=== PATIENT | male | born 1950 | race African-American/Black ===

== ENCOUNTER 2017-04-17 07:14 | Outpatient (CLI) | payer OTHER ==
[~2017-04-17 07:14] MED LIST: ALLOPURINOL100 MG; INDOCIN25 MG PO; INDOMETHACIN50 MG PO; INDOMETHACIN75 MG
== END 2017-04-17 07:21 | disposition home or self-care (01) ==
LOC: LAB 07:14
DX: C61 Malignant neoplasm of prostate (principal); E03.8 Other specified hypothyroidism; E78.4 Other hyperlipidemia

== ENCOUNTER 2017-05-16 09:44 | Emergency (ER) | payer OTHER ==
[~2017-05-16] VITALS: Ht 172.7 cm; Wt 105.2 kg
== END 2017-05-16 13:18 | disposition home or self-care (01) ==
LOC: ER 09:44
DX: M25.571 Pain in right ankle and joints of right foot (principal)

== ENCOUNTER 2017-08-25 23:41 | Emergency (ER) | payer OTHER ==
[~2017-08-25] VITALS: Ht 172.7 cm; Wt 108.0 kg
[2017-08-26] MEDS ORDERED: INDOMETHACIN75 MG PO (01:17)
== END 2017-08-26 01:24 | disposition home or self-care (01) ==
LOC: ER 23:41
DX: M10.031 Idiopathic gout, right wrist (principal)

== ENCOUNTER 2017-11-13 06:47 | Outpatient (CLI) | payer OTHER ==
[~2017-11-13 06:47] MED LIST changes: +INDOMETHACIN75 MG PO
== END 2017-11-13 07:12 | disposition home or self-care (01) ==
LOC: LAB 06:47
DX: C61 Malignant neoplasm of prostate (principal); E78.4 Other hyperlipidemia; D53.8 Other specified nutritional anemias; M35.3 Polymyalgia rheumatica

== ENCOUNTER → 2018-06-04 06:47 | Outpatient (CLI) | payer OTHER | END | disposition home or self-care (01) | LOC: LAB 06:47 | DX: E03.8 Other specified hypothyroidism (principal); E78.49 Other hyperlipidemia; M19.90 Unspecified osteoarthritis, unspecified site; C61 Malignant neoplasm of prostate; D53.8 Other specified nutritional anemias; M81.0 Age-related osteoporosis without current pathological fracture; M35.3 Polymyalgia rheumatica; Z11.1 Encounter for screening for respiratory tuberculosis ==

== ENCOUNTER → 2019-03-01 | Outpatient (CLI) | payer OTHER | END | disposition home or self-care (01) | LOC: RAD 08:18 | DX: M54.5 Low back pain (principal); M19.90 Unspecified osteoarthritis, unspecified site; M81.0 Age-related osteoporosis without current pathological fracture ==

== ENCOUNTER 2019-03-11 06:49 | Outpatient (CLI) | payer OTHER | END 2019-03-11 07:00 | disposition home or self-care (01) | LOC: LAB 06:49 | DX: E11.9 Type 2 diabetes mellitus without complications (principal); E03.8 Other specified hypothyroidism; E78.49 Other hyperlipidemia; C61 Malignant neoplasm of prostate; D53.8 Other specified nutritional anemias; M19.90 Unspecified osteoarthritis, unspecified site; M81.0 Age-related osteoporosis without current pathological fracture; M35.3 Polymyalgia rheumatica ==

== ENCOUNTER 2019-03-15 08:16 | Outpatient (CLI) | payer OTHER | END 2019-03-15 08:20 | disposition home or self-care (01) | LOC: SONOGRAMA 08:16 | DX: K56.41 Fecal impaction (principal); K56.49 Other impaction of intestine; C61 Malignant neoplasm of prostate; N18.3 Chronic kidney disease, stage 3 (moderate) ==

== ENCOUNTER 2019-03-17 07:09 | Outpatient (CLI) | payer OTHER | END 2019-03-17 07:16 | disposition home or self-care (01) | LOC: TOM 07:09 | DX: I65.29 Occlusion and stenosis of unspecified carotid artery (principal) | CPT/HCPCS: 70498; Q9965 ==

== ENCOUNTER 2019-08-01 10:53 | Outpatient (CLI) | payer OTHER | END 2019-08-01 10:55 | disposition home or self-care (01) | LOC: NUCLEAR 10:53 | PROVIDERS: ATTEND Surgery | DX: I65.23 Occlusion and stenosis of bilateral carotid arteries (principal) ==

== ENCOUNTER 2020-02-06 07:43 | Outpatient (CLI) | payer OTHER | END 2020-02-06 07:45 | disposition home or self-care (01) | LOC: NUCLEAR 07:43 | PROVIDERS: ATTEND Surgery | DX: I87.001 Postthrombotic syndrome without complications of right lower extremity (principal); I67.89 Other cerebrovascular disease ==

== ENCOUNTER 2020-05-04 07:39 | Outpatient (CLI) | payer OTHER | END 2020-05-04 07:47 | disposition home or self-care (01) | LOC: LAB 07:39 | PROVIDERS: ATTEND Internal Medicine | DX: C61 Malignant neoplasm of prostate (principal); E11.9 Type 2 diabetes mellitus without complications; E03.8 Other specified hypothyroidism; E78.5 Hyperlipidemia, unspecified; D53.8 Other specified nutritional anemias ==

== ENCOUNTER 2020-08-15 09:57 | Outpatient (CLI) | payer OTHER | END 2020-08-15 10:01 | disposition home or self-care (01) | LOC: NUCLEAR 09:57 | DX: G45.1 Carotid artery syndrome (hemispheric) (principal); I70.228 Atherosclerosis of native arteries of extremities with rest pain, other extremity ==

== ENCOUNTER 2021-06-21 06:49 | Outpatient (CLI) | payer OTHER | END 2021-06-21 07:11 | disposition home or self-care (01) | LOC: LAB 06:49 | PROVIDERS: ATTEND Internal Medicine | DX: E03.9 Hypothyroidism, unspecified (principal); E78.5 Hyperlipidemia, unspecified; E11.9 Type 2 diabetes mellitus without complications; C61 Malignant neoplasm of prostate; Z12.11 Encounter for screening for malignant neoplasm of colon; D53.9 Nutritional anemia, unspecified ==

== ENCOUNTER 2021-08-14 08:49 | Outpatient (CLI) | payer OTHER | END 2021-08-14 08:50 | disposition home or self-care (01) | LOC: NUCLEAR 08:49 | PROVIDERS: ATTEND Internal Medicine | DX: I65.23 Occlusion and stenosis of bilateral carotid arteries (principal); Z88.5 Allergy status to narcotic agent ==

== ENCOUNTER 2021-10-22 06:45 | Outpatient (CLI) | payer OTHER | END 2021-10-22 07:02 | disposition home or self-care (01) | LOC: LAB 06:45 | PROVIDERS: ATTEND Internal Medicine | DX: E11.9 Type 2 diabetes mellitus without complications (principal); E03.8 Other specified hypothyroidism; E78.2 Mixed hyperlipidemia; I11.9 Hypertensive heart disease without heart failure; E55.9 Vitamin D deficiency, unspecified; M10.9 Gout, unspecified ==

== ENCOUNTER 2022-04-25 07:14 | Outpatient (CLI) | payer OTHER | END 2022-04-25 07:19 | disposition home or self-care (01) | LOC: LAB 07:14 | PROVIDERS: ATTEND Internal Medicine | DX: C61 Malignant neoplasm of prostate (principal); E11.9 Type 2 diabetes mellitus without complications; E03.9 Hypothyroidism, unspecified; E78.5 Hyperlipidemia, unspecified; Z12.11 Encounter for screening for malignant neoplasm of colon ==

== ENCOUNTER 2022-11-28 09:46 | Outpatient (CLI) | payer OTHER | END 2022-11-28 09:47 | disposition home or self-care (01) | LOC: NUCLEAR 09:46 | PROVIDERS: ATTEND Internal Medicine | DX: G45.1 Carotid artery syndrome (hemispheric) (principal); I63.9 Cerebral infarction, unspecified ==

== ENCOUNTER 2023-03-03 10:43 | Emergency (ER) | payer OTHER ==
[~2023-03-03] VITALS: Ht 180.3 cm; Wt 101.2 kg
== END 2023-03-03 14:19 | disposition home or self-care (01) ==
LOC: ER 10:43
DX: U07.1 COVID-19 (principal); Z88.8 Allergy status to other drugs, medicaments and biological substances; I10 Essential (primary) hypertension

== ENCOUNTER 2023-10-28 09:45 | Outpatient (CLI) | payer OTHER | END 2023-10-28 09:47 | disposition home or self-care (01) | LOC: NUCLEAR 09:45 | PROVIDERS: ATTEND Internal Medicine | DX: I50.9 Heart failure, unspecified (principal); I65.29 Occlusion and stenosis of unspecified carotid artery ==

== ENCOUNTER 2023-12-26 10:31 | Emergency (ER) | payer OTHER ==
[~2023-12-26] VITALS: Ht 180.3 cm; Wt 97.5 kg
[2023-12-26] MEDS ORDERED: ORPHENADRINE CITRATE 30 MG/ML AMPUL IM STA (14:33)
[2023-12-26] MEDS ORDERED: DEXAMETHASONE SODIUM PHOSPHATE 4 MG/ML VIAL IM STA (14:33)
[2023-12-26] MEDS ORDERED: COLCHICINE 0.6 MG TABLET PO STA (14:34)
== END 2023-12-26 18:19 | disposition home or self-care (01) ==
LOC: ER 10:33
DX: R60.0 Localized edema (principal); Z88.6 Allergy status to analgesic agent; M10.9 Gout, unspecified
CPT/HCPCS: 96372; 99282; J1100; J2360

== ENCOUNTER 2024-04-01 06:19 | Outpatient (CLI) | payer OTHER ==
[2024-04-01 06:58] LABS: HEMATOCRIT 41.5 % (39.0-48.0); HEMOGLOBIN 13.8 g/dL (13-16.00); MEAN CELL VOLUME 86.6 fL (80.0-100.00); MEAN CORPUSCULAR HEMOGLOBIN 28.9 pg (27.00-32.0); MEAN CORPUSCULAR HGB CONC 33.3 g/dl (32.0-36.0); PLATELET COUNT 166 K/uL (150-450)
[2024-04-01 07:08] LABS: PH,URINE 5.5 (5.0-8.0); URINE APPEARANCE Clear; URINE BILIRRUBIN Negative (NEGATIVE); URINE BLOOD Negative; URINE COLOR Yellow; URINE GLUCOSE Negative (NEGATIVE); URINE KETONE Negative (NEGATIVE); URINE LEUKOCYTE Negative; URINE NITRATE Negative; URINE PROTEIN Negative (NEGATIVE); URINE UROBILINOGEN 0.2 E.U./dl
[2024-04-01 07:18] LABS: URINE BACTERIA 7.3 uL (0.0-1933); URINE EPITHELIAL CELLS 1.5 uL (0.0-38.8); URINE RBC 4.1 uL (0.0-20.8); URINE WBC 8.6 uL (0.0-23.2)
[2024-04-01 07:25] LABS: URINE CAST 0.14 uL (0.0-1.40)
[2024-04-01 07:43] LABS: ALBUMIN 3.6 gm/dL (3.4-5.0); BILIRUBIN TOTAL 1.54 mg/dL (0.3-1.2); CALCIUM 8.8 mg/dL (8.5-10.1); CHOL HDL RATIO 2.7 (0-5.0); CREATININE SERUM 1.28 mg/dL (0.70-1.30); GFR 54.94; GLOBULINA 3.1 G/DL (2.4-3.5); POTASSIUM 3.87 mEq/L (3.5-5.1); TOTAL PROTEIN 6.7 gm/dL (6.4-8.2); URIC ACID 8.8 mg/dL (3.5-8.5)
[2024-04-01 08:11] LABS: TSH 1.86 uIU/mL (0.358-3.74)
[2024-04-01 08:12] LABS: PROSTATIC SPECIFIC ANTIGEN 10.2 NG/ML (0.010-4.00)
[2024-04-01 09:15] LABS: ob NEGATIVE (NEGATIVE)
== END 2024-04-01 06:26 | disposition home or self-care (01) ==
LOC: LAB 06:19
DX: J06.9 Acute upper respiratory infection, unspecified (principal); N39.0 Urinary tract infection, site not specified; E88.819 Insulin resistance, unspecified; E55.9 Vitamin D deficiency, unspecified; R31.0 Gross hematuria; E78.2 Mixed hyperlipidemia; K92.0 Hematemesis; E03.8 Other specified hypothyroidism; E11.00 Type 2 diabetes mellitus with hyperosmolarity without nonketotic hyperglycemic-hyperosmolar coma (NKHHC); Z12.11 Encounter for screening for malignant neoplasm of colon; N40.0 Benign prostatic hyperplasia without lower urinary tract symptoms; M79.10 Myalgia, unspecified site; M19.90 Unspecified osteoarthritis, unspecified site; M81.0 Age-related osteoporosis without current pathological fracture

== ENCOUNTER 2024-06-30 07:56 | Outpatient (CLI) | payer OTHER | END 2024-06-30 07:59 | disposition home or self-care (01) | LOC: MRI 07:56 | DX: I67.9 Cerebrovascular disease, unspecified (principal); I65.9 Occlusion and stenosis of unspecified precerebral artery | CPT/HCPCS: 70551 ==

== ENCOUNTER 2024-10-25 07:41 | Outpatient (CLI) | payer OTHER, BC | END 2024-10-25 07:42 | disposition home or self-care (01) | LOC: NUCLEAR 07:41 | DX: I11.9 Hypertensive heart disease without heart failure (principal); I50.9 Heart failure, unspecified; I65.29 Occlusion and stenosis of unspecified carotid artery ==

== ENCOUNTER → 2024-11-20 | Emergency (ER) | payer OTHER ==
[~2024-11-20] VITALS: Ht 180.3 cm; Wt 97.1 kg
[~2024-11-20] MED LIST changes: +ELIQUIS5 MG PO; +TRAMADOL HCL 50 MG TABLET PO STA
[2024-11-20 15:42] LABS: BASO % 0.3 % (0.1-1.2); EOS # 0.11 (0.04-0.54); EOS % 1.1 % (0.7-7.0); LYMPH # 1.07 (1.18-3.74); LYMPH % 10.2 % (19.3-53.1); MEAN PLATELET VOLUME 11.00 fl (9.4-12.4); MONO # 0.56 (0.24-0.82); MONO % 5.4 % (4.7-12.5); NEUT # 8.65 (1.56-6.13); NEUT % 82.6 % (34.0-71.1); RED CELL DISTRIBUTION WIDTH 13.4 % (11.6-14.4)
[2024-11-20 16:14] LABS: ALT/SGPT 22.0 U/L (12-78); AST/SGOT 12.0 U/L (15-37); BILIRUBIN TOTAL 1.2 mg/dL (0.3-1.2); BUN CREA RATIO 13.0 (7.0-25.0); CREATININE SERUM 1.25 mg/dL (0.70-1.30); GFR 56.46; GLOBULINA 4.2 G/DL (2.4-3.5); GLUCOSE FASTING 99.0 mg/dL (65-100); OSMOLALITY SERUM 284.0 MOSM/KG (275-295)
== END | disposition left against medical advice (07) ==
LOC: ER 13:03
PROVIDERS: General Practice
DX: M25.562 Pain in left knee (principal); M25.561 Pain in right knee; Z88.6 Allergy status to analgesic agent; I48.92 Unspecified atrial flutter; M10.9 Gout, unspecified
CPT/HCPCS: 36415; 71045; 96365; 99283; J3490